=== PATIENT | female | born 1995 | race Hispanic/Latino ===

== ENCOUNTER 2021-12-30 09:53 | Emergency (ER) | payer SELFPAY ==
--- NOTE | 2021-12-30 11:54 | EDPHYS ---
Physician Documentation [facility] Name: Kobe Bacon Age: 26 yrs Sex: Female : 1995 Arrival Date: 12/30/2021 Time: 09:54 Bed 12 Private MD: JHONNY Physician David Chowdary HPI: 12/30 11:47 This 26 yrs old Female presents to ER via Ambulatory with complaints of Sore layo Throat. 11:47 The patient presents with sore throat. The patient describes throat pain as constant, layo raw. Onset: The symptoms/episode began/occurred 2 day(s) ago. Severity of symptoms: At their worst the symptoms were mild, in the emergency department the symptoms are unchanged. Modifying factors: The symptoms are alleviated by nothing, the symptoms are aggravated by nothing. Associated signs and symptoms: The patient has no apparent associated signs or symptoms. The patient has not experienced similar symptoms in the past. 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 - Social history:: Smoking status: Patient denies any tobacco usage or history of. Patient/guardian denies using alcohol. ROS: 11:49 Constitutional: Negative for fever, chills, and weight loss, Eyes: Negative for injury, layo pain, redness, and discharge, Neck: Negative for injury, pain, and swelling, Respiratory: Negative for shortness of breath, cough, wheezing, and pleuritic chest pain, Abdomen/GI: Negative for abdominal pain, nausea, vomiting, diarrhea, and constipation, Back: Negative for injury and pain, : Negative for injury, bleeding, discharge, and swelling, MS/Extremity: Negative for injury and deformity, Skin: Negative for injury, rash, and discoloration, Neuro: Negative for headache, weakness, numbness, tingling, and seizure, Psych: Negative for depression, anxiety, suicide ideation, homicidal ideation, and hallucinations, Allergy/Immunology: Negative for hives, rash, and allergies, Endocrine: Negative for neck swelling, polydipsia, polyuria, polyphagia, and marked weight changes, Hematologic/Lymphatic: Negative for swollen nodes, abnormal bleeding, and unusual bruising. 11:49 ENT: Positive for rhinorrhea, sinus congestion, sore throat. 11:49 Cardiovascular: Positive for palpitations. 11:49 Abdomen/GI: Positive for abdominal distension. Exam: 11:49 Constitutional: This is a well developed, well nourished patient who is awake, alert, layo and in no acute distress. Head/Face: Normocephalic, atraumatic. Eyes: Pupils equal round and reactive to light, extra-ocular motions intact. Lids and lashes normal. Conjunctiva and sclera are non-icteric and not injected. Cornea within normal limits. Periorbital areas with no swelling, redness, or edema. Neck: Trachea midline, no thyromegaly or masses palpated, and no cervical lymphadenopathy. Supple, full range of motion without nuchal rigidity, or vertebral point tenderness. No Meningismus. Chest/axilla: Normal chest wall appearance and motion. Nontender with no deformity. No lesions are appreciated. Cardiovascular: Regular rate and rhythm with a normal S1 and S2. No gallops, murmurs, or rubs. Normal PMI, no JVD. No pulse deficits. Respiratory: Lungs have equal breath sounds bilaterally, clear to auscultation and percussion. No rales, rhonchi or wheezes noted. No increased work of breathing, no retractions or nasal flaring. Abdomen/GI: Soft, non-tender, with normal bowel sounds. No distension or tympany. No guarding or rebound. No evidence of tenderness throughout. Back: No spinal tenderness. No costovertebral tenderness. Full range of motion. Skin: Warm, dry with normal turgor. Normal color with no rashes, no lesions, and no evidence of cellulitis. MS/ Extremity: Pulses equal, no cyanosis. Neurovascular intact. Full, normal range of motion. Neuro: Awake and alert, GCS 15, oriented to person, place, time, and situation. Cranial nerves II-XII grossly intact. Motor strength 5/5 in all extremities. Sensory grossly intact. Cerebellar exam normal. Normal gait. Psych: Awake, alert, with orientation to person, place and time. Behavior, mood, and affect are within normal limits. 11:49 ENT: Posterior pharynx: Airway: normal, no evidence of obstruction, Tonsils: with erythema, Uvula: normal, swelling, that is mild, erythema, that is mild. Vital Signs: 10:18 BP 118 / 79; Pulse 129; Resp 18; Temp 97.7(TE); Pulse Ox 97% on R/A; Weight 94.8 kg; ld1 Height 5 ft. 3 in. (160.02 cm); Pain 0/10; 12:34 BP 122 / 82; Pulse 98; Resp 18; Pulse Ox 98% on R/A; em6 10:18 Body Mass Index 37.02 (94.80 kg, 160.02 cm) ld1 MDM: 10:34 Patient medically screened. [facility] 11:51 Differential diagnosis: Allergic rhinitis, viral Infection, bacterial infection, URI, layo UTI, group A strep tonsillitis, influenza, laryngitis, pharyngitis, tonsillitis, upper respiratory infection. Data reviewed: vital signs, nurses notes, lab test result(s), Flu:. 12/30 10:18 Order name: COVID-19 SARS RT PCR (Document "Date of Onset" if Symptomatic); Complete ld1 Time: 11:41 12/30 10:18 Order name: Flu; Complete Time: 11:41 ld1 12/30 10:18 Order name: Strep; Complete Time: 11:41 ld1 12/30 10:57 Order name: Throat Culture [facility] 12/30 11:47 Order name: FHT's; Complete Time: 12:32 layo Administered Medications: 12:10 Drug: Tylenol 1000 mg Route: PO; em6 12:34 Follow up: Response: No adverse reaction em6 12:10 Drug: Zithromax (azithromycin) 500 mg Route: PO; em6 12:34 Follow up: Response: No adverse reaction em6 Disposition Summary: 12/30/21 11:54 Discharge Ordered Location: Home [facility] Problem: new layo Symptoms: have improved layo Condition: Stable layo Diagnosis - Fever, unspecified layo - SARS-associated coronavirus as the cause of diseases classified elsewhere layo - Acute pharyngitis, unspecified layo - 28 weeks gestation of layo Followup: layo - With: Private Physician - When: 2 - 3 days - Reason: Recheck today's complaints, Continuance of care, Re-evaluation by your physician Followup: layo - With: Mingo Quick MD - When: 2 - 3 days - Reason: Recheck today's complaints, Re-evaluation by your physician Discharge Instructions: - Discharge Summary Sheet [facility] - Fever, Adult [facility] - Pharyngitis [facility] - Care [facility] - Sore Throat [facility] - Upper Respiratory Infection, Adult [facility] - COVID-19 [facility] Forms: - Medication Reconciliation Form [facility] - Thank You Letter [facility] - Antibiotic Education [facility] - Prescription Opioid Use [facility] Prescriptions: - Zithromax Z-Iván 250 mg Oral Tablet - take 1 tablet by ORAL route as directed for 5 days Day 1 - take two (2) tablets [facility] one time. Day 2, 3, 4 , 5 take one (1) tablet once daily.; 6 tablet; Refills: 0, Product Selection Permitted - Tylenol 325 mg Oral Tablet - take 2 tablets by ORAL route every 6 hours as needed; 1 bottle; Refills: 0, [facility] Product Selection Permitted Signatures: Dispatcher [employer] David Rey MD MD cha Dibbern, Lauren, RN RN ld1 Jo Manrique RN RN em6
--- NOTE | 2021-12-30 11:54 | ER ---
Nurse's Notes [facility] Name: Kobe Bacon Age: 26 yrs Sex: Female : 1995 Arrival Date: 12/30/2021 Time: 09:54 Bed 12 Private MD: Diagnosis: Fever, unspecified;SARS-associated coronavirus as the cause of diseases classified elsewhere;Acute pharyngitis, unspecified;28 weeks gestation of Presentation: 12/30 10:18 Chief complaint: Patient states: Sore throat/scratchy X 2 days. "Just got back from [place], I don't know if I got sick there and I want to make sure I am okay because I am 7 months ." Pt reports no care. Coronavirus screen: At this time, the client does not indicate any symptoms associated with coronavirus-19. Coronavirus screen: Client presents with at least one sign or symptom that may indicate coronavirus-19. Standard/surgical mask placed on the client. Ebola Screen: No symptoms or risks identified at this time. Initial Sepsis Screen: Does the patient meet any 2 criteria? No. Patient's initial sepsis screen is negative. Does the patient have a suspected source of infection? No. Patient's initial sepsis screen is negative. Risk Assessment: Do you want to hurt yourself or someone else? Patient reports no desire to harm self or others. Onset of symptoms was December 30, 2021. 10:18 Method Of Arrival: Ambulatory ld1 10:18 Acuity: PHILLIP 4 ld1 Triage Assessment: 10:19 General: Appears in no apparent distress. comfortable, Behavior is calm, cooperative, ld1 appropriate for age. Pain: Denies pain. EENT: Reports pain in uvula, left aspect of posterior pharynx and right aspect of posterior pharynx. Neuro: Level of Consciousness is awake, alert, obeys commands, Oriented to person, place, time, situation. Cardiovascular: Capillary refill < 3 seconds Patient's skin is warm and dry. Cardiovascular: Rhythm is sinus tachycardia. Respiratory: Respiratory: Airway is patent Respiratory effort is even, unlabored. GI: Abdomen is round non-distended. : No signs and/or symptoms were reported regarding the genitourinary system. Derm: No signs and/or symptoms reported regarding the dermatologic system. 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 - Social history:: Smoking status: Patient denies any tobacco usage or history of. Patient/guardian denies using alcohol. Screenin:32 Abuse screen: Denies threats or abuse. Nutritional screening: No deficits noted. em6 Tuberculosis screening: No symptoms or risk factors identified. Fall Risk Total Mccullough Fall Scale indicates No Risk (0-24 pts). Assessment: 12:00 Reassessment: see triage assessment. em6 12:00 Respiratory: Airway is patent Respiratory effort is even, unlabored, Respiratory em6 pattern is regular, symmetrical, Breath sounds are clear bilaterally. EENT: Throat is reddened. 12:33 Reassessment: heart tones checked with Doppler. FHT 156. em6 Vital Signs: 10:18 BP 118 / 79; Pulse 129; Resp 18; Temp 97.7(TE); Pulse Ox 97% on R/A; Weight 94.8 kg; ld1 Height 5 ft. 3 in. (160.02 cm); Pain 0/10; 12:34 BP 122 / 82; Pulse 98; Resp 18; Pulse Ox 98% on R/A; em6 10:18 Body Mass Index 37.02 (94.80 kg, 160.02 cm) ld1 ED Course: 09:54 Patient arrived in ED. am2 10:19 Triage completed. ld1 10:19 Arm band placed on right wrist. ld1 10:24 Flu Sent. ld1 10:24 Strep Sent. ld1 10:24 COVID-19 SARS RT PCR (Document "Date of Onset" if Symptomatic) Sent. ld1 10:34 David Chowdary MD is Attending Physician. layo 11:53 Mingo Quick MD is Referral Physician. [facility] 12:00 Bed in low position. Call light in reach. Side rails up X 1. Warm blanket given. em6 12:09 oJ Manrique RN is Primary Nurse. em6 12:37 No provider procedures requiring assistance completed. Patient did not have IV access em6 during this emergency room visit. Administered Medications: 12:10 Drug: Tylenol 1000 mg Route: PO; em6 12:34 Follow up: Response: No adverse reaction em6 12:10 Drug: Zithromax (azithromycin) 500 mg Route: PO; em6 12:34 Follow up: Response: No adverse reaction em6 Medication: 12:34 VIS not applicable for this client. em6 Outcome: 11:54 Discharge ordered by MD. vasques 12:37 Discharged to home ambulatory. em6 12:37 Condition: stable 12:37 Discharge instructions given to patient, Instructed on discharge instructions, follow up and referral plans. medication usage, Demonstrated understanding of instructions, follow-up care, medications, Prescriptions given X 2. 12:37 Patient left the ED. em6 Signatures: David Chowdary MD MD cha Moreno, Amanda am2 Dibbern, Lauren, RN RN ld1 Jo Manrique RN RN em6
[2021-12-30] MEDS ORDERED: ACETAMINOPHEN 500 MG TAB ONE (12:12)
[2021-12-30] MEDS ORDERED: AZITHROMYCIN 250 MG TAB ONE (12:13)
[2021-12-30 13:13] VITALS: TEMP 97.7
[2021-12-30 13:19] VITALS: BP 122/82; O2SAT 98
== END 2021-12-30 12:37 | disposition home or self-care (01) ==
LOC: ER 09:53
DX: U07.1 COVID-19 (principal)
CPT/HCPCS: 87070; 87081; 87804; 99284; U0003